=== PATIENT | female | born 2000 | race Caucasian/White ===

== ENCOUNTER 2023-10-29 02:09 | Emergency (ER) | payer BC, SELFPAY ==
[2023-10-29 02:09] VITALS: BMI 25.8
[2023-10-29 02:10] VITALS: BP 123/87
[2023-10-29 03:43] LABS: % Basophils 0.3 % (0-2); % Eosinophils 0.3 % (0-6); % Immature Granulocytes 0.3 % (0-0.5); % Lymphocytes 15.1 % (20.5-51.1); % Monocytes 8.9 % (1.7-9.3); % Neutrophils 75.1 % (42.2-75.2); Absolute Lymphocytes 0.9 10^3/uL (1.2-3.4); Absolute Monocytes 0.6 10^3/uL (0.1-0.6); Absolute Neutrophils 4.6 10^3/uL (1.4-6.5); Hematocrit 37.1 % (37.0-47.0); Hemoglobin 13.1 g/dL (12.0-16.0); Mean Corp Hgb Conc. 35.3 g/dL (33.0-37.0); Mean Corpuscular Hgb 28.5 pg (27.0-31.0); Mean Corpuscular Volume 80.8 fL (81.0-99.0); Nucleated Red Blood Cells % 0 %; Platelet Count 293 10^3/uL (130-400); Red Blood Cell Count 4.59 10^6/uL (4.20-5.40); Red Cell Dist. Width 13.3 % (11.5-14.5); White Blood Cell Count 6.2 10^3/uL (4.8-10.8)
--- NOTE | 2023-10-29 03:51 | ED.GENMED ---
History of Present Illness
General
Chief Complaint: Abdominal Pain
Source: patient
Exam Limitations: none
Time Seen by Provider: 10/29/23 03:40
Nursing documentation reviewed up to this point in time: agreed with
History of Present Illness
History of Present Illness:
This is a 23-year-old female who has history of constipation, irritable bowel syndrome, prior history of gastritis who complains of 2-day history of epigastric abdominal pain that radiates to her right upper quadrant. Epigastric abdominal pain is
much worse with eating accompanied with intermittent nausea and vomiting. Has vomited twice throughout the day yesterday. She has been passing a few small soft stools but denies diarrhea. Upper abdominal pain seems worse when she attempts to pass
a bowel movement but does not feel that she is constipated and current pain feels different from previous episodes of constipation. No dysuria no urgency no hematuria, no back pain or flank pain, no fever no chills.
She denies risk of , maintained on control pills.
She had been prescribed acid blockers/PPIs in the past but currently not taking these.
She admits to alcohol consumption a few days ago but denies daily nor significant alcohol use. No drug use nor smoking. She denies NSAID use.
No close contacts with similar symptoms and no recent travel.
Past History
Past History
ED Past Medical History: Psychiatric (Anxiety/depression) and Other (Constipation, gastritis, irritable bowel syndrome)
ED Past Surgical History: None
Social History
Tobacco: Non-smoker
Alcohol: Occasional
Drug: None
Personal: Single
Living: with family
Employment: Student
Family History
Family History: Other (Noncontributory)
Phy Exam
Physical Exam
Physical Exam:
GENERAL: 23-year-old female appears her stated age, weak and alert, pleasant, appears in no acute distress. Mother is accompanying.
EYE: anicteric
NECK: Supple, nontender, no meningismus, no significant adenopathy.
ENT: oral mucosa is moist. No rhinorrhea.
CARDIAC: Regular rate and rhythm. no murmur.
LUNGS: Clear breath sounds bilaterally, no acute respiratory distress, no wheezes/rales/rhonchi
ABDOMEN: Soft, nondistended, moderate tenderness epigastric as well as right upper quadrant without rebound nor guarding or rigidity. No palpable masses. no cvat. normoactive BS.
NEUROLOGICAL: Alert and oriented x3, no focal neuro deficits. Gait is villagomez and steady.
SKIN: Warm and dry, normal color, skin intact. No rash.
MUSCULOSKELETAL: No C/C/E. peripheral pulses are full and equal b/l. No palpable tenderness.
PSYCH: Normal and appropriate interaction.
Course
Orders/Labs/Results
Orders:
Orders
10/29/23 02:18
Test Result ONCE
10/29/23 03:28
Complete Blood Count/With Diff Urgent
10/29/23 03:50
Ondansetron Injectable [Zofran] 4 mg IV NOW STA
Pantoprazole [Protonix IV] 40 mg IV NOW STA
US Abdomen Complete/Upper Urgent
Comment:
Reason For Exam: 2 d epigastric to RUQ pain
10/29/23 04:01
Comprehensive Metabolic Panel Urgent
HCG, Serum Qualitative Screen Urgent
Comment: REDRAW
Lipase Urgent
10/29/23 06:19
Sucralfate Suspension [Carafate Suspension] 1 gm PO NOW STA
Abnormal Lab Results
10/29/23 10/29/23
03:28 04:01
MCV 80.8 L fL
(81.0-99.0)
Absolute Lymphs (auto) 0.9 L 10^3/uL
(1.2-3.4)
Lymphocytes % 15.1 L %
(20.5-51.1)
Carbon Dioxide 19 L mmol/L
(22-30)
Albumin 5.3 H g/dl
(3.5-5.0)
10/29/23 03:28
10/29/23 04:01
Vital Signs
Initial and Last Documented VS:
Initial Vital Signs
Temp Pulse Resp BP Pulse Ox
98.5 F 114 24 123/87 100
10/29/23 02:10 10/29/23 02:10 10/29/23 02:10 10/29/23 02:10 10/29/23 02:10
Last Documented Vital Signs
Temp Pulse Resp BP Pulse Ox
98.5 F 64 18 118/61 99
10/29/23 02:10 10/29/23 05:00 10/29/23 05:00 10/29/23 05:00 10/29/23 05:00
MDM/Problems Addressed
Differential Diagnosis Includes:
Concern for acute gastritis/peptic ulcer disease, biliary colic/cholecystitis, gastroenteritis, exacerbation of irritable bowel syndrome.
Will check labs and plan for abdominal ultrasound.
Will medicate for nausea with Zofran and given IV dose of Protonix.
Chronic conditions affecting care: Other (Irritable bowel syndrome, history of constipation, gastritis.)
*Radiology
Radiology exam reviewed: radiology read reviewed
*Pulse Oximetry
Patient hypoxic: no
*Critical Care Note
Total Time (30-74mins, 75-104mins- exclusive of procedures): Not Applicable
Update Note
Update Note:
10/29/2023 0701 AM
Patient feeling somewhat improved after IV Zofran and Protonix but markedly improved after an oral dose of Carafate.
Labs are unremarkable as is abdominal ultrasound.
I suspect acute gastritis and recommend we resume PPI and will add a short course of Carafate for as needed upper abdominal pain as well Zofran for as needed nausea.
Discussed importance of bland diet avoiding alcohol, spicy or fried foods. Continue to avoid NSAIDs.
Prompt follow-up with PCP versus her coding consultant for recheck.
Return precautions discussed.
ED Attending Note
-
Portions of this chart may have been created with voice recognition software.� Occasional wrong word or��sound alike� substitutions may have occurred due to the inherent limitations of voice recognition software.
Discharge Plan
Departure
Patient Disposition: Home (Routine Discharge)
Date of Disposition: 10/29/23
Time of Disposition: 07:02
Patient with high blood pressure during this ER visit?: No
Condition: Good
Discharge Problem:
Acute gastritis
Instructions: [place] Diet, Gastritis (DC)
Prescriptions:
New
sucralfate [Carafate] 100 mg/mL suspension
10 ml PO QID PRN (Reason: upper abdominal pain) Qty: 400 0RF
pantoprazole [Protonix] 40 mg tablet,delayed release (DR/EC)
40 mg PO DAILY Qty: 30 0RF
ondansetron 4 mg tablet,disintegrating
4 mg PO QID PRN (Reason: nausea and vomiting) Qty: 20 0RF
No Action
polyethylene glycol 3350 17 GRAMS powder in packet
1 cap PO DAILY
Patient Comments:
Pt takes 1 capful in the am and 1/2 capful in the evenings
guar gum-calcium carbonate 100 MG tablet,chewable
100 mg PO DAILY
L.acidoph, paracasei,B. lactis 1 EACH capsule
1 ea PO DAILY
sulfamethoxazole-trimethoprim 1 TABLET tablet
1 tab PO BID Qty: 6 0RF
Referrals:
Nu Muñoz MD [Family Provider] - Call in 1-3 days for appt
Interventions
Interventions:
*Risk Screen - Suicide Last Done: 10/29/23 04:38
*General Assessment Last Done: 10/29/23 04:38
*Neglect/Abuse Screening Last Done: 10/29/23 04:38
ED- Fall Risk Assessment Last Done: 10/29/23 04:38
XV-Lzwnob-Lxkkvbjntf Assessment Last Done: 10/29/23 04:37
Discharge Date and Time
Print Language: AZERI
[2023-10-29 04:00] VITALS: BP 118/61
[2023-10-29] MEDS: ZOFRAN 4 MG IV (04:10)
[2023-10-29] MEDS: PROTONIX IV 40 MG IV (04:12)
[2023-10-29 04:23] LABS: HCG, Serum Qualitative Screen Negative
[2023-10-29 04:24] LABS: ALT (SGPT) 22 U/L (0-35); AST (SGOT) 33 U/L (14-36); Albumin 5.3 g/dl (3.5-5.0); Alkaline Phosphatase 69 U/L (38-126); Blood Urea Nitrogen 7 mg/dl (7-17); Carbon Dioxide 19 mmol/L (22-30); Chloride 107 mmol/L (98-107); Estimated Creatinine Clearance 113 ml/min; Glucose 99 mg/dl (70-99); Lipase 110 U/L (23-300); Potassium 3.8 mmol/L (3.5-5.1); Sodium 144 mmol/L (135-145); Total Bilirubin 0.9 mg/dl (0.2-1.3); Total Protein 7.9 g/dl (6.3-8.2); eGFR > 60.00
[2023-10-29 05:00] VITALS: BP 118/61
[2023-10-29] MEDS: CARAFATE SUSPENSION 1 GM PO (06:33)
--- NOTE | 2023-10-29 06:55 | EDRN ---
Dr. Zhong in to see pt.
[2023-10-29 07:51] VITALS: BP 116/77
== END 2023-10-29 07:53 | disposition home or self-care (01) ==
LOC: EMR 02:09
PROVIDERS: EMERGENCY PHYSICIAN Emergency Medicine; FAMILY PHYSICIAN Internal Medicine
DX: K29.00 Acute gastritis without bleeding (principal); K58.9 Irritable bowel syndrome, unspecified; R11.2 Nausea with vomiting, unspecified; K59.00 Constipation, unspecified; F41.9 Anxiety disorder, unspecified; F32.A Depression, unspecified
CPT/HCPCS: 99284; 96374; 96375; 76700; 80053; 83690; 84703; 85025

== ENCOUNTER → 2024-04-25 11:27 | Outpatient (REF) | payer OTHER, SELFPAY ==
[2024-04-25 21:45] LABS: Hepatitis B Surface Antibody Negative
== END ==
LOC: REG 11:27
PROVIDERS: ATTENDING PHYSICIAN Nurse Practitioner Family
DX: Z23 Encounter for immunization (principal)
CPT/HCPCS: 36415; 86480; 86706

== ENCOUNTER → 2024-07-09 11:02 | Outpatient (REF) | payer BC, SELFPAY ==
[2024-07-11 00:08] LABS: SSA 52 (Ro)(ENA) Ab, IgG 1 AU/mL (0-40); SSA 60 (Ro)(ENA) Ab, IgG 0 AU/mL (0-40); SSB (La)(ENA) Ab, IgG 0 AU/mL (0-40)
[2024-07-11 12:55] LABS: Chromogranin A 33 ng/mL (0-187)
[2024-07-11 13:52] LABS: Rheumatoid Agglutinin Less Than 10 IU (<10 IU)
== END ==
LOC: REG 11:02
PROVIDERS: ATTENDING PHYSICIAN Internal Medicine
DX: G90.09 Other idiopathic peripheral autonomic neuropathy (principal)
CPT/HCPCS: 36415; 82384; 83088; 83520; 84182; 86140; 86235; 86316; 86430

== ENCOUNTER → 2024-07-11 15:11 | Outpatient (REF) | payer BC, SELFPAY | LOC: CLAB 15:11 | PROVIDERS: ATTENDING PHYSICIAN Internal Medicine | DX: G90.09 Other idiopathic peripheral autonomic neuropathy (principal) | CPT/HCPCS: 36415; 82384; 82530; 83835; 84585; 86041 ==

== ENCOUNTER → 2024-07-30 11:20 | Outpatient (REF) | payer OTHER, SELFPAY ==
[2024-08-01 20:15] LABS: Hepatitis B Surface Antibody Positive
== END ==
LOC: OHS 11:20
PROVIDERS: ATTENDING PHYSICIAN Nurse Practitioner Family
DX: Z23 Encounter for immunization (principal)
CPT/HCPCS: 36415; 86706

== ENCOUNTER 2024-08-29 14:04 | Emergency (ER) | payer BC, SELFPAY ==
[2024-08-29 14:05] VITALS: BP 131/88
[2024-08-29 14:52] VITALS: BMI 24.2
[2024-08-29 15:42] LABS: % Basophils 0.7 % (0-2); % Eosinophils 0.3 % (0-6); % Immature Granulocytes 0.2 % (0-0.5); % Lymphocytes 14.7 % (20.5-51.1); % Monocytes 3.8 % (1.7-9.3); % Neutrophils 80.3 % (42.2-75.2); Absolute Lymphocytes 0.9 10^3/uL (1.2-3.4); Absolute Monocytes 0.2 10^3/uL (0.1-0.6); Absolute Neutrophils 4.8 10^3/uL (1.4-6.5); Hematocrit 38.8 % (37.0-47.0); Hemoglobin 13.1 g/dL (12.0-16.0); Mean Corp Hgb Conc. 33.8 g/dL (33.0-37.0); Mean Corpuscular Hgb 29.8 pg (27.0-31.0); Mean Corpuscular Volume 88.4 fL (81.0-99.0); Nucleated Red Blood Cells % 0 %; Platelet Count 255 10^3/uL (130-400); Red Blood Cell Count 4.39 10^6/uL (4.20-5.40); Red Cell Dist. Width 11.7 % (11.5-14.5)
[2024-08-29 15:49] LABS: HCG, Serum Qualitative Screen Negative
[2024-08-29 15:55] LABS: ALT (SGPT) 33 U/L (0-35); AST (SGOT) 23 U/L (14-36); Albumin 4.4 g/dl (3.5-5.0); Alkaline Phosphatase 56 U/L (38-126); Blood Urea Nitrogen 6 mg/dl (7-17); Calcium 9.6 mg/dl (8.4-10.2); Carbon Dioxide 26 mmol/L (22-30); Chloride 105 mmol/L (98-107); Estimated Creatinine Clearance > 125 ml/min; Glucose 107 mg/dl (70-99); Potassium 3.8 mmol/L (3.5-5.1); Sodium 141 mmol/L (135-145); Total Bilirubin 0.6 mg/dl (0.2-1.3); Total Protein 7.5 g/dl (6.3-8.2); eGFR > 60.00
--- NOTE | 2024-08-29 16:01 | ED.GENMED ---
History of Present Illness
General
Chief Complaint: Headache
Source: patient
Exam Limitations: none
Time Seen by Provider: 08/29/24 15:48
History of Present Illness
History of Present Illness:
See MDM
Past History
Past History
ED Past Medical History: Psychiatric (Anxiety/depression) and Other (Constipation, gastritis, irritable bowel syndrome)
ED Past Surgical History: None
Social History
Tobacco: Non-smoker
Alcohol: Occasional
Drug: None
Personal: Single
Living: with family
Employment: Student
Family History
Family History: Other (Noncontributory)
Phy Exam
Physical Exam
Physical Exam:
See MDM
Course
Orders/Labs/Results
Orders:
Orders
08/29/24 14:09
Test Result ONCE
08/29/24 15:29
Complete Blood Count/With Diff Urgent
Comprehensive Metabolic Panel Urgent
HCG, Serum Qualitative Screen Urgent
08/29/24 15:58
0.9% Sodium Chloride 1000 ml [Nss] 1,000 ml IV BOLUS
Diphenhydramine [Benadryl] 25 mg IV NOW STA
Ketorolac [Toradol] 30 mg IV NOW STA
Metoclopramide [Reglan] 10 mg IV NOW STA
Abnormal Lab Results
08/29/24
15:29
Absolute Lymphs (auto) 0.9 L 10^3/uL
(1.2-3.4)
Neutrophils % 80.3 H %
(42.2-75.2)
Lymphocytes % 14.7 L %
(20.5-51.1)
BUN 6 L mg/dl
(7-17)
Glucose 107 H mg/dl
(70-99)
08/29/24 15:29
08/29/24 15:29
Vital Signs
Initial and Last Documented VS:
Initial Vital Signs
Temp Pulse Resp BP Pulse Ox
98.5 F 110 16 131/88 98
08/29/24 14:05 08/29/24 14:05 08/29/24 14:05 08/29/24 14:05 08/29/24 14:05
Last Documented Vital Signs
Temp Pulse Resp BP Pulse Ox
98.5 F 85 18 110/60 100
08/29/24 14:05 08/29/24 16:45 08/29/24 16:45 08/29/24 16:16 08/29/24 16:45
MDM/Problems Addressed
Differential Diagnosis Includes:
HPI and MDM Narrative:
23-year-old female presenting for evaluation of headache. This is apparently been going on for a week. Due to history of gastritis, she has avoided NSAIDs. Tylenol offers minimal relief. She denies any change in caffeine use. She complains of
photophobia
On exam, she is well-appearing nontoxic. Pupils equal reactive. EOMI. No focal neurodeficits. Will treat with migraine and provide fluids, Toradol, Reglan and Benadryl
Physical exam
General: Well appearing and non-toxic
HEENT: protecting airway. Pupils equal reactive. EOMI
Neck: appears supple
CV: No evidence of cyanosis
Resp: No accessory muscle use
Abd: Non-distended
Extremities: No deformities
Neuro: alert
Psych: Mildly anxious
Skin: Intact
Problems Addressed including Acute and Chronic Conditions affecting care:
1. Migraine
Acuity: acute
Prognosis: stable
Details: Given no focal neurodeficits, low utility in CT head. Will reassess symptoms after fluids, Toradol, Reglan and Benadryl
Updates
On reassessment, patient states she is feeling somewhat better. I did offer to try Fioricet but patient states he would rather go home. Discussed return precautions
Differential Diagnosis (but not limited to): Migraine, tension headache
Testing considered: CT head
Drug therapy (if applicable): OTC meds, please see d/c instruction regarding Rx drugs
Amount and/or Complexity of Data Reviewed
Clinical info obtained from: Patient
External data reviewed: N/A
Labs I independently reviewed (but not limited to): White blood cell count normal
Radiology: N/A
Pulse Ox: not hypoxic
EKG independently reviewed: N/A
Crate Repairer: N/A
Critical Care: N/A
Risk of Complication:
Social Determinants of health: Good social support
Discussed with other providers: N/A
Escalation of Care includes Admit/Obs: After being observed in the Emergency Department, pt stable for discharge.
Occasional wrong word or 'sound a like' substitutions may have occurred due to the inherent limitations of voice recognition software. Read the chart carefully and recognize, using context, where substitutions have occurred.
*Pulse Oximetry
SaO2: 98
Oxygen Mode of Delivery: Room air
Patient hypoxic: no
*Critical Care Note
Total Time (30-74mins, 75-104mins- exclusive of procedures): Not Applicable
ED Attending Note
-
Portions of this chart may have been created with voice recognition software.� Occasional wrong word or��sound alike� substitutions may have occurred due to the inherent limitations of voice recognition software.
Discharge Plan
Departure
Patient Disposition: Home (Routine Discharge)
Date of Disposition: 08/29/24
Time of Disposition: 18:09
Patient with high blood pressure during this ER visit?: No
Discharge Problem:
Migraine
Instructions: Migraines (DC)
Prescriptions:
No Action
polyethylene glycol 3350 17 GRAMS powder in packet
1 cap PO DAILY
Patient Comments:
Pt takes 1 capful in the am and 1/2 capful in the evenings
guar gum-calcium carbonate 100 MG tablet,chewable
100 mg PO DAILY
L.acidoph,paracasei,B.animalis 1 EACH capsule
1 ea PO DAILY
sulfamethoxazole-trimethoprim 1 TABLET tablet
1 tab PO BID Qty: 6 0RF
sucralfate [Carafate] 100 mg/mL suspension
10 ml PO QID PRN (Reason: upper abdominal pain) Qty: 400 0RF
pantoprazole [Protonix] 40 mg tablet,delayed release (DR/EC)
40 mg PO DAILY Qty: 30 0RF
ondansetron 4 mg tablet,disintegrating
4 mg PO QID PRN (Reason: nausea and vomiting) Qty: 20 0RF
sucralfate 1 gram tablet
1 g PO BID Qty: 20 0RF
Referrals:
Winifred Guadalupe CRNP [Family Provider, General]
Activity Restrictions/Additional Instructions:
Please return for any worsening symptoms.
You may return at any time if you have further concerns.
Please follow up with your doctor at the first available appointment, preferably this week.
Thank you for choosing [facility].
Interventions
Interventions:
*Risk Screen - Suicide Last Done: 08/29/24 14:05
*General Assessment Last Done: 08/29/24 14:52
*Neglect/Abuse Screening Last Done: 08/29/24 14:05
*ED- Fall Risk Assessment Last Done: 08/29/24 14:52
*ED COVID-19 Vaccine History Last Done: 08/29/24 14:52
ED- Neurological Assessment Last Done: 08/29/24 15:02
Discharge Date and Time
Print Language: CROATIAN
[2024-08-29] MEDS: NSS 1000 IV (16:07)
[2024-08-29] MEDS: TORADOL 30 MG IV (16:08)
[2024-08-29] MEDS: BENADRYL 25 MG IV (16:09)
[2024-08-29] MEDS: REGLAN 10 MG IV (16:10)
[2024-08-29 16:16] VITALS: BP 110/60
[2024-08-29 17:00] VITALS: BP 105/69
[2024-08-29 18:14] VITALS: BP 101/73
== END 2024-08-29 18:20 | disposition home or self-care (01) ==
LOC: EMR 14:04
PROVIDERS: Emergency Medicine; EMERGENCY PHYSICIAN Student in an Organized Health Care Education/Training Program; FAMILY PHYSICIAN Nurse Practitioner Primary Care
DX: G43.909 Migraine, unspecified, not intractable, without status migrainosus (principal)
CPT/HCPCS: 96374; 96375; 96361; 99284; 80053; 84703; 85025

== ENCOUNTER → 2024-10-19 15:21 | Outpatient (REF) | payer BC, SELFPAY ==
[2024-10-19 17:08] LABS: Free T3 3.47 pg/ml (2.77-5.27)
[2024-10-19 17:22] LABS: TSH 3.16 uIU/ml (0.47-4.68)
== END ==
LOC: REG 15:21
PROVIDERS: ATTENDING PHYSICIAN Nurse Practitioner Family; FAMILY PHYSICIAN Nurse Practitioner Primary Care
DX: E03.9 Hypothyroidism, unspecified (principal)
CPT/HCPCS: 36415; 84439; 84443; 84481

== ENCOUNTER → 2025-01-23 12:34 | Outpatient (REF) | payer BC, SELFPAY ==
[2025-01-23 13:46] LABS: Free T3 3.18 pg/ml (2.77-5.27)
[2025-01-23 14:00] LABS: TSH 4.99 uIU/ml (0.47-4.68)
== END ==
LOC: REG 12:34
PROVIDERS: ATTENDING PHYSICIAN Nurse Practitioner Family; FAMILY PHYSICIAN Nurse Practitioner Primary Care
DX: E03.9 Hypothyroidism, unspecified (principal)
CPT/HCPCS: 36415; 84439; 84443; 84481